=== PATIENT | female | born 1950 | race Caucasian/White ===

== ENCOUNTER 2016-12-30 09:37 | Emergency (ER) | payer OTHER ==
[2016-12-30 09:41] VITALS: BP 175/76; PULSE 80; RESP 18; TEMP 98.5; O2SAT 99
--- NOTE | 2016-12-30 11:55 | C.PDOC ---
History Of Present Illness 66 yr old female presents to the ER with complaints of bilateral knee pain for the past 2 months. Reports pain with walking with walking. Patient states she took a Motrin with minimal relief. Patient also reports of chronic joint pain in other joints. Denies trauma, fever, chest pain, SOB, back pain, leg pain, weakness or numbness. Time Seen by Provider: 12/30/16 09:48 Chief Complaint (Nursing): Lower Extremity Problem/Injury History Per: Patient History/Exam Limitations: no limitations Onset/Duration Of Symptoms: Days (2 months) Current Symptoms Are (Timing): Still Present Recent travel outside of the [place]: No Past Medical History Reviewed: Historical Data, Nursing Documentation, Vital Signs Vital Signs: Last Vital Signs Temp 98.5 F 12/30/16 09:39 Pulse 80 12/30/16 09:39 Resp 18 12/30/16 09:39 BP 175/76 H 12/30/16 09:39 Pulse Ox 99 12/30/16 12:56 - Medical History PMH: HTN Family History: States: No Known Family Hx - Social History Hx Alcohol Use: No Hx Substance Use: No Review Of Systems Except As Marked, All Systems Reviewed And Found Negative. Constitutional: Negative for: Fever Cardiovascular: Negative for: Chest Pain Respiratory: Negative for: Shortness of Breath Musculoskeletal: Positive for: Other ((+) Bilateral kne epain ). Negative for: Back Pain, Leg Pain Neurological: Negative for: Weakness, Numbness Physical Exam - Physical Exam Appears: Non-toxic, No Acute Distress Skin: Warm, Dry Head: Atraumatic, Normacephalic Oral Mucosa: Moist Chest: Symmetrical, No Tenderness Cardiovascular: Rhythm Regular, No Murmur Respiratory: Normal Breath Sounds, No Rales, No Rhonchi, No Stridor, No Wheezing Extremity: Normal ROM, No Tenderness, No Calf Tenderness, Capillary Refill (<2) , No Swelling ED Course And Treatment O2 Sat by Pulse Oximetry: 99 - Other Rad X-Ray - Bilateral Knees X-Ray: Viewed By Me, Read By Radiologist Interpretation: PROCEDURE: Bilateral Knee Radiographs. HISTORY: r/o fx. COMPARISON: None. FINDINGS: BONES: Right Knee: Quadriceps insertional enthesophyte. No fracture. Left Knee: Normal. No fracture. JOINTS: Right Knee: Minimal medial femoral tibial joint space narrowing. Left knee: Tricompartmental space narrowing medial femoral tibial knee joint line spurring most notable osteoarthritis. SOFT TISSUES: Right Knee: Normal. Left Knee: Normal. JOINT EFFUSION: Right Knee: None. Left Knee: None. OTHER FINDINGS: Scattered atherosclerotic vascular calcification -bilateral. IMPRESSION: No fracture or dislocation appreciated. Bilateral senescent changes most notable in left knee especially medial femoral tibial compartment Medical Decision Making Medical Decision Making: PLAN: * X-Ray - Bilateral Knees Disposition - Disposition Referrals: [facility] [Outside] Disposition: HOME/ ROUTINE Disposition Time: 11:10 Condition: GOOD Additional Instructions: Thank you for letting us take care of you today. Your provider was [Provider Name Here]. You were treated for [Diagnosis Here]. The emergency medical care you received today was directed at your acute symptoms. If you were prescribed any medication, please fill it and take as directed. It may take several days for your symptoms to resolve. Return to the Emergency Department if your symptoms worsen, do not improve, or if you have any other problems. Please contact your doctor or call one of the physicians/clinics you have been referred to that are listed on the Patient Visit Information form that is included in your discharge packet. Bring any paperwork you were given at discharge with you along with any medications you are taking to your follow up visit. Our treatment cannot replace ongoing medical care by a primary care provider (PCP) outside of the emergency department. Thank you for allowing the [facility] team to be part of your care today. Follow up with your primary doctor in 3-5 days for further treatment and possible referral. Prescriptions: traMADol [Ultram] 50 mg PO Q6 PRN #20 tab PRN Reason: Pain, Severe (8-10) Instructions: Osteoarthritis (ED) - Clinical Impression Clinical Impression: Osteoarthritis - Scribe Statement The provider has reviewed the documentation as recorded by the Benibe Daija Kumar Provider Attestation: All medical record entries made by the Benibmelissa were at my direction and personally dictated by me. I have reviewed the chart and agree that the record accurately reflects my personal performance of the history, physical exam, medical decision making, and the department course for this patient. I have also personally directed, reviewed, and agree with the discharge instructions and disposition.
--- NOTE | 2016-12-30 12:47 | RAD ---
PROCEDURE: Bilateral Knee Radiographs. HISTORY: r/o fx COMPARISON: None. FINDINGS: BONES: Right Knee: Quadriceps insertional enthesophyte. No fracture. Left Knee: Normal. No fracture. JOINTS: Right Knee: Minimal medial femoral tibial joint space narrowing Left knee: Tricompartmental space narrowing medial femoral tibial knee joint line spurring most notable osteoarthritis. SOFT TISSUES: Right Knee: Normal. Left Knee: Normal. JOINT EFFUSION: Right Knee: None. Left Knee: None. OTHER FINDINGS: Scattered atherosclerotic vascular calcification -bilateral IMPRESSION: No fracture or dislocation appreciated. Bilateral senescent changes most notable in left knee especially medial femoral tibial compartment
== END 2016-12-30 11:38 | disposition home or self-care (01) ==
LOC: C.ER 09:37
DX: M17.0 Bilateral primary osteoarthritis of knee (principal)

== ENCOUNTER 2018-07-05 09:56 | Outpatient (CLI) | payer OTHER | END 2018-07-05 09:57 | disposition home or self-care (01) | LOC: C.MAMMO 09:56 ==